=== PATIENT | male | born 1955 | race Caucasian/White ===

== ENCOUNTER 2023-02-12 09:52 | Emergency (ER) | payer MEDICARE ==
[~2023-02-12] VITALS: Ht 170.2 cm; Wt 90.7 kg
[2023-02-12 09:54] VITALS: BP 144/76; PULSE 67; RESP 16
== END 2023-02-12 11:46 | disposition home or self-care (01) ==
LOC: EDH 09:52
DX: M25.531 Pain in right wrist (principal); M79.644 Pain in right finger(s); M65.4 Radial styloid tenosynovitis [de Quervain]; I10 Essential (primary) hypertension; E78.00 Pure hypercholesterolemia, unspecified; E11.9 Type 2 diabetes mellitus without complications; Z90.89 Acquired absence of other organs; Z90.49 Acquired absence of other specified parts of digestive tract
CPT/HCPCS: 73110

== ENCOUNTER 2023-03-12 13:06 | Emergency (ER) | payer MEDICARE ==
[~2023-03-12] VITALS: Ht 170.2 cm; Wt 90.7 kg
[2023-03-12 14:04] VITALS: BP 114/74; PULSE 70; RESP 18
[2023-03-12 14:47] LABS: RAPID GROUP A STREP negative (NEGATIVE)
[2023-03-12 15:18] LABS: SARS-CoV-2, RNA, NAAT POSITIVE SARS CoV-2 (NEGATIVE)
[2023-03-12 15:42] LABS: INFLUENZA TYPE A Negative For Type A (NEGATIVE); INFLUENZA TYPE B Negative For Type B (NEGATIVE)
[2023-03-12] MEDS: PREDNISONE 20 MG TABLET PO ONE (17:41)
[2023-03-12] MEDS ORDERED: IBUP-2070 PO (17:45)
[2023-03-12] MEDS ORDERED: PRED20TA3 PO (17:45)
== END 2023-03-12 17:55 | disposition home or self-care (01) ==
LOC: EDH 13:06
DX: U07.1 COVID-19 (principal); E11.9 Type 2 diabetes mellitus without complications; E78.00 Pure hypercholesterolemia, unspecified; E66.9 Obesity, unspecified; Z98.890 Other specified postprocedural states
CPT/HCPCS: 87635; 87804; 87880